=== PATIENT | female | born 1960 | race Caucasian/White ===

== ENCOUNTER 2016-08-24 02:01 | Inpatient (IN) | payer OTHER ==
[2016-08-24] VITALS (7 sets, daily range): BP systolic 102–126; BP diastolic 60–74
[~2016-08-24] VITALS: Ht 157.5 cm; Wt 102.1 kg
[~2016-08-24 02:01] MED LIST: PERCOCET 5-3251 EACH PO; TROSPIUM CHLORI20 M1 PO; VESICARE5 M1 PO; ZOCOR80 M1 PO
[2016-08-24 11:59] LABS: ABSOLUTE BASOPHIL COUNT 0.1 /CUMM (0.0-0.2); ABSOLUTE EOSINOPHIL COUNT 0.1 /CUMM (0.0-0.7); ABSOLUTE GRANULOCYTE CT 19.9 /CUMM (1.4-6.5); ABSOLUTE LYMPH COUNT 3.5 /CUMM (1.2-3.4); ABSOLUTE MONOCYTE COUNT 0.6 /CUMM (0.10-0.60); BASOPHIL % 0.3 % (0.0-2.0); EOSINOPHIL % 0.3 % (0-5); GRANULOCYTE % 82.6 % (42.2-75.2); MEAN CORPUSCULAR HGB 26.9 PG (27.0-31.0); MEAN CORPUSCULAR HGB CONC 33.2 G/DL (33.0-37.0); MEAN CORPUSCULAR VOLUME 81.2 FL (81.0-99.0); MEAN PLATELET VOLUME 9.3 FL (7.4-10.4); PLATELET COUNT 256 /CUMM (130-400); RBC DISTRIBUTION WIDTH 15.2 % (11.5-14.5); RED BLOOD CELL CT 4.56 /CUMM (4.20-5.40); WHITE BLOOD CELL COUNT 24.1 /CUMM (4.8-10.8)
--- NOTE | 2016-08-24 13:30 | NUR ---
ARRIVED TO FLOOR VIA STRETCHER FROM PACU. DROWSY/AROUSABLE. ORIENTED X 3. ON RA, SATURATION 99%. VSS. C/O PAIN 8/10 TO ABDOMEN. STATES PAIN INCREASED AFTER TRANSFER TO BED BUT IS SETTLING NOW THAT SHE IS NOT MOVING. 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 IVF INFUSING VIA HL TO RIGHT HAND. DRESSING TO LOWER ABDOMEN. SMALL SPOTS OF DRAINAGE NOTED. GREGG DRAINING TO GRAVITY. PT ORIENTED TO CALL SYSTEM. CLEAR LIQUID TRAY ORDERED.
--- NOTE | 2016-08-24 14:49 | Operative Report ---
Operative/Inv Procedure Report Surgery Date: 08/24/16 Name of Procedure: abdominal sacrocolpopexy Pre-Operative Diagnosis: cytocele and apical prolapse Post-Operative Diagnosis: same Estimated Blood Loss: 700cc Surgeon/Program Host: KJ DELGADO MD Anesthesia: general endotracheal tube Implants: y mesh Drains: roberts 16fr Specimens: none Complications: none Condition: stable Operative Indication: recurrent prolapse of bladder and vagina Operative/Procedure Note Note: This is an operative dictation on patient Vnadana Cisneros. She was consented for an abdominal sacral colpopexy due to recurrence of her cystocele and apical vagina prolapse. She was given the risks benefits and alternatives of the surgery and she wished to proceed. All questions were answered. She was taken to the operating room placed on the operating table in supine position. Once timeout was performed she was given IV 400 mg of Cipro. She was given an endotracheal tube for general anesthesia. She was placed in the dorsolithotomy position. Roberts catheter was laced at the beginning of the surgery after she was prepped and draped in the standard sterile fashion. ChloraPrep was used on her abdomen and Betadine in her pelvic area. A Pfannenstiel incision was made with the #15 blade and this was carried down with the Bovie cautery to the level of the rectus fascia. This was opened in a transverse orientation. The direct rectus muscles were identified and split in the midline carefully. The underlying peritoneum was entered and she was noted to have no significant adhesions. The pedicle trial retractor was placed and the bowel was retracted in a cephalad manner by packing with moistened laparotomy pads and blue towels. The pelvis was then inspected. She had a lot of redundant sigmoid which was packed away. A vaginal sponge stick was placed to allow for identification of the vaginal apex. The sacral promontory was then found in the the peritoneum overlying the promontory was opened using Metzenbaum scissors as well as Bovie cautery. This was dissected free from the underlying periosteum carefully. Care was taken not to injure the lumbar vessels with the larger vessels. 3-0 Prolene sutures were sequentially placed in the sacrum. She did very hard bony sacrum and it was difficult to place them but was finally successful. The bladder was filled with irrigation to visualize the boundaries of the bladder better with the vaginal apex dissection. The vaginal apex was then dissected free using sharp and blunt dissection with the Metzenbaum scissors and digital dissection. 3 sutures were placed anteriorly and 3 sutures were placed posteriorly on the vaginal apex. The Prolene sutures were then placed through the wide portion of the Y mesh and sutured down posteriorly than anteriorly. The mesh was cut prior to placing it to fit the patient's anatomy. The vertical portion of the Y mesh was then attached at the sacral promontory with the previously placed Prolene sutures. The sponge stick was in the vaginal apex to allow for retraction and placement towards the sacrum. Estimated of the length of mesh necessary was made without overcorrection of the vagina. The mesh was then tied down to the sacrum with with the previously placed Prolene sutures. And showed to have good reduction of the prolapse. The excess mesh was then cut and trimmed. The there was no active bleeding noted at this point but Surgicel was placed to help with any later bleeding and we went ahead and close the peritoneum over the mesh to extra peritonealized the mesh completely using 2-0 Vicryl running suture. The additional sutures were placed through the apex of the vagina and the remaining prevesical peritoneum was used to close the space and prevent future enterocele formation. Attention was then turned to closing the abdomen. All lap pads and blue towels were removed from the abdomen and closed the peritoneum with 2-0 Vicryl interrupted sutures after the omentum was placed over the intestines. The rectus abdominal muscles were reapproximated in the midline with 2-0 Vicryl sutures. We then closed the rectus fascia using 0 loop macron suture. This was followed by 3-0 Vicryl interrupted sutures in the subcutaneous tissue followed by juana in the subcuticular region. The wound was dressed with Steri-Strips followed by an airstrip dressing. The sponge and needle count were correct at the end of the case. Patient tolerated the procedure well. The estimated blood loss was approximate 700 mL. Attention was then turned to closing the abdomen when there was no signs of active bleeding. Findings: deep pelvis with redundant sigmoid. Nicely reduced prolapse after the sacrocolpopexy Discharge Disposition: PACU
[2016-08-25 02:04] VITALS: BP 130/70
[2016-08-25 06:00] VITALS: BP 130/68
[2016-08-25 08:19] LABS: ABSOLUTE BASOPHIL COUNT 0 /CUMM (0.0-0.2); ABSOLUTE EOSINOPHIL COUNT 0 /CUMM (0.0-0.7); ABSOLUTE GRANULOCYTE CT 14.8 /CUMM (1.4-6.5); ABSOLUTE LYMPH COUNT 1.1 /CUMM (1.2-3.4); ABSOLUTE MONOCYTE COUNT 0.7 /CUMM (0.10-0.60); BASOPHIL % 0 % (0.0-2.0); EOSINOPHIL % 0 % (0-5); HEMATOCRIT 34.4 % (37-47); MEAN CORPUSCULAR HGB 26.9 PG (27.0-31.0); MEAN CORPUSCULAR HGB CONC 33.3 G/DL (33.0-37.0); MEAN CORPUSCULAR VOLUME 80.8 FL (81.0-99.0); MEAN PLATELET VOLUME 9.4 FL (7.4-10.4); PLATELET COUNT 227 /CUMM (130-400); RBC DISTRIBUTION WIDTH 15.4 % (11.5-14.5); RED BLOOD CELL CT 4.25 /CUMM (4.20-5.40)
[2016-08-25 09:06] LABS: WHITE BLOOD CELL COUNT 16.7 /CUMM (4.8-10.8)
--- NOTE | 2016-08-25 10:49 | PN- Urology ---
Subjective Subjective: pt doing well with mild abd pain. passed gas and tolerated clears. Review of Systems Constitutional: Reports: no symptoms. EENTM: Reports: no symptoms. Cardiovascular: Reports: no symptoms. Respiratory: Reports: no symptoms. Gastrointestinal: Reports: no symptoms. Genitourinary: Reports: no symptoms, pain. Musculoskeletal: Reports: no symptoms. Skin: Reports: no symptoms. Neurological/Psychological: Reports: no symptoms. Hematologic/Endocrine: Reports: no symptoms. Immunologic/Allergic: Reports: no symptoms. Objective Vital Signs and I&Os Vital Signs Date Time Temp Pulse Resp B/P B/P Pulse O2 O2 Flow FiO2 Mean Ox Delivery Rate 08/25 0600 97.7 70 20 130/68 92 Room Air 08/25 0204 98.0 75 20 130/70 94 Room Air 08/24 2200 98.1 83 18 126/70 94 Room Air / 2038 98.2 78 20 120/74 92 Room Air / 2000 98.2 78 18 120/74 / 1807 98.1 74 20 110/70 93 Room Air / 1531 97.5 64 16 102/60 06/09 1514 97.5 64 18 102/60 98 06/09 1349 97.3 63 16 104/60 06/09 1349 97.3 63 16 104/60 99 Room Air Intake & Output 08/25 1600 08/25 0800 08/25 0000 / 1600 08/24 0800 06/ 0000 Intake Total 1275 775 600 Output Total 900 1950 325 Balance 375 -1175 275 Intake, IV 1000 375 Intake, Oral 275 400 600 Output, Urine 900 1950 325 Patient 102.058 kg Weight Weight Reported by Patient Measurement Method Physical Exam: awake and lalert, nad abd soft, ND tender at incision site roberts in place draining clear urine. no calf tenderness Physical Exam General Appearance: well developed/nourished, no apparent distress, alert, awake , comfortable Head: atraumatic, normal appearance Ears, Nose, Throat: normal ENT inspection Neck: normal inspection Respiratory: normal breath sounds Abdomen: soft Rectal: deferred Extremities: normal inspection, no edema Neurologic/Psychiatric: awake, alert, oriented x 3 Skin: intact, normal color, warm/dry Reproductive: Normal female genitalia Current Medications: Current Medications Sig/Senait Start time Last Medication Dose Route Stop Time Status Admin Acetaminophen 650 MG Q6P PRN 08/24 1230 AC PO Atorvastatin Calcium 80 MG 1700 08/24 1700 AC 08/24 PO 1858 Ciprofloxacin 400 MG ONCE 08/24 0000 DC Dextrose/Water 200 ML IV 08/24 2359 Diphenhydramine HCl 50 MG AT BEDTIME NEED.. 08/24 1230 AC PO Hydromorphone HCl 50 MG Q24H PRN 08/24 1145 DC Sodium Chloride 45 ML IV 08/25 1000 Hydromorphone HCl 2 MG .STK-MED ONE 08/24 1137 DC IM 08/24 1138 Lactated Ringer's 1,000 ML Q8H 08/24 1230 AC 08/25 IV 0322 Ondansetron HCl 4 MG Q8P PRN 08/24 1230 AC PO Oxycodone/ 1 TAB Q4-6 PRN PRN 08/25 1000 AC Acetaminophen PO Oxycodone/ 2 TAB Q4-6 PRN PRN 08/25 1000 AC Acetaminophen PO Oxycodone/ 1 TAB Q4-6 PRN PRN 08/24 1415 DC Acetaminophen PO Oxycodone/ 2 TAB Q4-6 PRN PRN 08/24 1415 DC Acetaminophen PO Results Last 48 Hours of Labs: Laboratory Tests 08/25 08/24 0620 1120 Chemistry Sodium (137 - 145 mmol/L) 138 Potassium (3.5 - 5.1 mmol/L) 4.4 Chloride (98 - 107 mmol/L) 101 Carbon Dioxide (22 - 30 mmol/L) 26 Anion Gap (5 - 16) 11 BUN (7 - 17 mg/dL) 10 Creatinine (0.5 - 1.0 mg/dL) 0.5 Estimated GFR (>60 ml/min) > 60 BUN/Creatinine Ratio (7 - 25 %) 20.0 Hematology CBC w Diff NO MAN DIFF REQ MAN DIFF ORDERED WBC (4.8 - 10.8 /CUMM) 16.7 H 24.1 H RBC (4.20 - 5.40 /CUMM) 4.25 4.56 Hgb (12.0 - 16.0 G/DL) 11.4 L 12.3 Hct (37 - 47 %) 34.4 L 37.0 MCV (81.0 - 99.0 FL) 80.8 L 81.2 MCH (27.0 - 31.0 PG) 26.9 L 26.9 L RDW (11.5 - 14.5 %) 15.4 H 15.2 H Plt Count (130 - 400 /CUMM) 227 256 MPV (7.4 - 10.4 FL) 9.4 9.3 Gran % (42.2 - 75.2 %) 89.0 H 82.6 H Lymphocytes % (20.5 - 51.1 %) 6.8 L 14.4 L Monocytes % (1.7 - 9.3 %) 4.2 2.4 Eosinophils % (0 - 5 %) 0 0.3 Basophils % (0.0 - 2.0 %) 0 L 0.3 Absolute Granulocytes (1.4 - 6.5 /CUMM) 14.8 H 19.9 H Absolute Lymphocytes (1.2 - 3.4 /CUMM) 1.1 L 3.5 H Absolute Monocytes (0.10 - 0.60 /CUMM) 0.7 H 0.6 Absolute Eosinophils (0.0 - 0.7 /CUMM) 0 0.1 Absolute Basophils (0.0 - 0.2 /CUMM) 0 0.1 Platelet Estimate (ADEQUATE) ADEQUATE Normocytic RBCs VERIFIED Normochromic RBCs VERIFIED PUBS MCHC (33.0 - 37.0 G/DL) 33.3 33.2 Assessment/Plan Assessment/Plan 55 yo female s/p abd colpopexy. doing well POD#1. Discontinue roberts given one dose of cipro. Discharge to home with folluw up next week in my office. Core Measures/Miscellaneous Venous Thromboembolism VTE Risk Factors: Age > 40, Obesity VTE Contraindications: No Contraindications No Pharm VTE Prophylaxis D/T: Active Bleeding VTE Diagnosis: No VTE Type: NONE VTE Confirmed by (Test): NONE Beta Nayan Is Beta Nayan a Home Med? No Antibiotics Is Patient on Antibiotics? No Attending MD Review Statement Attending Statement Attending MD Statement: examined this patient
[2016-08-25] MEDS ORDERED: PERCOCET 5-3251 EACH PO (12:13)
== END 2016-08-25 14:52 | DRG 748 ==
LOC: STS 02:01 → PACUH 09:46 → ENRESERV 10:54 → PACUH 11:07 → ENTRNSPT 12:47 → EDTRNSPTSTS 13:16 → CMPTRNSPT 13:20 → 2NA 13:25 → ENPENDDIS 08-25 10:53 → 2NA 08-25 14:52
PROVIDERS: ADMIT Urology
PROC: 0USG0ZZ Reposition Vagina, Open Approach (ICD-10-PCS; principal; 2016-08-24)
PROC: 3E0T3CZ (ICD-10-PCS; 2016-08-24)
DX: N81.10 Cystocele, unspecified (principal); E78.5 Hyperlipidemia, unspecified; F17.200 Nicotine dependence, unspecified, uncomplicated
CPT/HCPCS: 2NAP; 82436; 87086; C1763; C9399; J0744; J1170; J3101; J7060; J7120